=== PATIENT | male | born 1945 | race Caucasian/White ===

== ENCOUNTER 2021-05-25 08:05 | Emergency (ER) | payer MEDICARE, SELFPAY ==
[2021-05-25] VITALS (7 sets, daily range): BP systolic 114–141; BP diastolic 68–98; PULSE 61–83; RESP 18–19; TEMP 35.9; O2SAT 97–99
--- NOTE | ~2021-05-25 | XR_ITS ---
EXAMINATION: XR chest 1V portable 05/25/2021 08:28 INDICATION: Dizziness. Lightheadedness. PROCEDURE: AP portable chest COMPARISON: No prior studies for comparison. FINDINGS: The lungs are clear. The cardiomediastinal silhouette is mildly enlarged. There are no ple ural effusions. There is no pneumothorax suspected. There is a pacemaker lead, tip in the right jennifer tricle. IMPRESSION: 1: NO ACUTE CARDIOPULMONARY DISEASE. Reviewed, dictated and finalized at location A.
--- NOTE | 2021-05-25 08:13 | ECG_ITS ---
Measurements Intervals [place] Rate: 62 P: MO: 0 QRS: 197 QRSD: 119 T: 192 QT: 438 QTc: 445 Interpretive Statements ATRIAL FIBRILLATION LIMB LEAD REVERSAL INTRAVENTRICULAR CONDUCTION DELAY DELAYED PRECORDIAL R/S TRANSITION BORDERLINE T WAVE ABNORMALITY- ANT/INF LEADS BASELINE ARTIFACT- I, II ABNORMAL ECG Electronically Signed On 05-25-2021 10:39:56 CDT by Gregory Cullen D.O.
--- NOTE | 2021-05-25 08:14 | ED.DIZZY ---
HPI - Dizziness General Chief Complaint: Dizziness Stated Complaint: Dizziness Source: RN notes reviewed History of Present Illness HPI Narrative: Patient presents to emergency department via EMS for dizziness. Patient was riding on a bus going on a trip to see the [employer] game when he became suddenly sweaty and dizzy. He states that the episode lasted approximately 20 minutes and he felt like he was going to pass out he states that during this time he had no numbness or tingling in the extremities chest pain shortness of breath or any other symptoms. Patient does have a history of chronic atrial fibrillation as well as a pacemaker patient states that he been feeling fine this morning prior to the symptoms onset states he now feels back to normal Related Data Home Medications Medication Instructions Recorded Confirmed verapamil 180 mg PO DAILY 05/25/21 warfarin DAILY 05/25/21 Allergies Allergy/AdvReac Type Severity Reaction Status Date / Time Eczlohh-Isr-Yor Reductase AdvReac Other Verified 05/25/21 08:14 Inhibitor Review of Systems Review of Systems: Narrative: Gen.: Denies fevers or chills reports sweating Eyes: Denies eye pain or visual change ENT: Denies congestion Respiratory: Denies shortness of breath or cough CV: Reports feeling near syncope GI: Denies abdominal pain nausea, emesis or diarrhea denies burning, urgency, frequency or hematuria Musculoskeletal: Denies back pain or muscle pain Neuro: Denies numbness, tingling, weakness or focal weakness Skin: Denies rash Except as documented, all other systems reviewed and negative FORMERLY [facility] Past Medical History Medical History (Updated 05/25/21 @ 13:39 by Sen Baron DO) Atrial fibrillation Social History Social History (Updated 05/25/21 @ 08:15 by Sen Baron DO) Smoking status: Never smoker Gender identity (if verbalized by the patient): Male Exam Narrative: Exam Narrative: APPEARANCE: No acute distress, nontoxic, resting in bed EYES: EOMI HEENT: Normocephalic, atraumatic, OMM RESPIRATORY: No respiratory distress Clear to auscultation bilaterally with no rhonchi wheezing or rales. CARDIOVASCULAR: Irregular irregular without murmurs rubs or gallops. ABDOMINAL: Soft, nontender, nondistended, no rebound or guarding MUSCULOSKELETAl: Moves all extremities. No clubbing, cyanosis or edema. NEURO: Awake and alert x 4 Following commands, speech normal, no focal deficits muscle strength 5 out of 5 bilateral upper and lower extremities SKIN:: Warm, dry. No rashes lesions or abrasions PSYCHIATRIC: Normal affect/mood, Course Course Emergency Course: Patient has been asymptomatic throughout stay in ED Called discussed with patient's standards engineer . States the patient has had a history of these episodes before in past agrees with plan for discharge to follow-up as an outpatient Discussed with patient results of workup and diagnosis. Discussed need for follow-up with primary care, proper use of medication, and reasons to return to the emergency department. Patient understands and agrees to current treatment plan Vital Signs Vital signs: Vital Signs Temperature 96.6 F L 05/25/21 08:06 Pulse Rate 69 05/25/21 08:06 Respiratory Rate 19 05/25/21 08:06 Blood Pressure 136/98 H 05/25/21 08:06 Pulse Oximetry 97 05/25/21 08:06 Temperature 96.6 F L 05/25/21 08:06 Pulse Rate 78 05/25/21 12:31 Respiratory Rate 18 05/25/21 12:31 Blood Pressure 132/76 05/25/21 12:31 Pulse Oximetry 99 05/25/21 12:31 MDM - Dizziness MDM Narrative Medical decision making narrative: Patient's episode of near-syncope is not felt due to high risk cause. Near-syncopal episode was brief and patient is now back to normal mental status. EKG is reviewed without high-risk changes for syncope: There are no signs of prolonged QT or Brugada syndrome. Patient ambulates with a steady gait and is felt to be a reasonable candidate for fur
[2021-05-25] MEDS: SODIUM CHLORIDE 0.9% IV 1,000 ML 999 ML IV CONT (08:24)
--- NOTE | 2021-05-25 09:09 | PC.NURSE ---
[employer] rep contacted at this time. will come to ed to assess pt's ppm
[2021-05-25 09:16] LABS: Basophils Absolute Auto 0.1 K/mm3 (0.0-0.1); Basophils Percent Auto 0.8 % (0.2-1.2); Eosinophils Absolute Auto 0.3 K/mm3 (0-0.3); Eosinophils Percent Auto 4.1 % (0-4.4); Hematocrit 48.9 % (42.0-52.0); Hemoglobin 16.1 g/dL (14.0-18.0); Immature Granulocyte Absolute 0.02 K/mm3 (0.00-0.031); Immature Granulocyte Percent A 0.3 % (0-0.5); Lymphocytes Absolute Auto 1.41 K/mm3 (0.9-3.2); Lymphocytes Percent Auto 21.3 % (18.3-44.2); Mean Corpuscular HGB Conc 32.9 g/dl (32-36); Mean Corpuscular Hemoglobin 30.4 pg (26-34); Mean Corpuscular Volume 92.4 fl (80-100); Mean Platelet Volume 9.3 fl (7.4-10.4); Monocytes Absolute Auto 0.5 K/mm3 (0.1-0.6); Monocytes Percent Auto 7.7 % (2.6-8.5); Neutrophils Absolute Auto 4.4 K/mm3 (1.3-6.7); Neutrophils Percent Auto 65.8 % (45.5-73.1); Platelet Count Result 200 k/mm3 (150-375); Red Blood Count 5.29 M/mm3 (4.6-6.20); White Blood Count 6.6 K/mm3 (4.5-10.0)
[2021-05-25 09:24] LABS: INR 2.3; Prothrombin Time 24.9 Seconds (11.1-14.7)
[2021-05-25 09:25] LABS: Partial Thromboplastin Time 33.2 SECONDS (22.3-36.8)
[2021-05-25 09:29] LABS: Alanine Aminotransferase 21 U/L (4-50); Albumin Level 4.2 g/dL (3.5-5.1); Alkaline Phosphatase 78 U/L (38-126); Anion Gap 8 mmol/L (8-16); Aspartate Amino Transferase 31 U/L (17-59); Bilirubin,Total 0.7 mg/dL (0.2-1.3); Blood Urea Nitrogen 21 mg/dL (9-20); Carbon Dioxide 24 mmol/L (22-30); Chloride 107 mmol/L (98-107); Estimated CRCL calculation 57 ml/min; Estimated Glomerular Filt Rate > 60; Glucose 97 mg/dL (65-110); Potassium 4.9 mmol/L (3.4-5.0); Sodium 139 mmol/L (137-145)
[2021-05-25 09:38] LABS: Troponin I < 0.012 ng/mL (0.000-0.034)
[2021-05-25 10:10] LABS: Add Urine Microscopic? YES; Appearance Urine Clear (Clear); Bilirubin Urine Negative (Negative); Blood Urine Negative (Negative); Color Urine Yellow (Yellow); Glucose Urine UA Negative (Negative); Ketones Urine Negative (Negative); Leukocyte Esterase Ur Negative LEU/UL (Negative); Mucus Urine Heavy /lpf; Nitrate Urine Negative (Negative); Protein Urine 1+ mg/dL (Negative); RBC Urine 0-2 /hpf (0-2); Specific Grav Ur 1.018 (1.001-1.035); Squamous Epithelial Cell Urine Rare /hpf (Few); Urobilinogen Urine Negative mg/dL (<2.0); WBC Urine 0-3 /hpf
--- NOTE | 2021-05-25 12:02 | PC.NURSE ---
1200 CONTACTED [employer] @[phone] STATED WILL SEND OUT A SECOND PAGE FOR THEM TO CALL [facility].
[2021-05-25 12:56] LABS: Troponin I < 0.012 ng/mL (0.000-0.034)
== END 2021-05-25 13:55 | disposition home or self-care (01) ==
PROVIDERS: Emergency Provider Emergency Medicine
DX: R55 Syncope and collapse (principal); I48.91 Unspecified atrial fibrillation; Z79.01 Long term (current) use of anticoagulants; I45.9 Conduction disorder, unspecified; R94.31 Abnormal electrocardiogram [ECG] [EKG]
CPT/HCPCS: 36415; 71045; 80053; 81001; 84484; 85025; 85610; 85730; 93005; 96360; 99284; J7030